=== PATIENT | male | born 1945 | race Caucasian/White ===

== ENCOUNTER 2022-10-04 09:19 | Day surgery (SDC) | payer MEDICARE, SELFPAY ==
[2022-10-04 09:55] VITALS: BP 179/79; PULSE 68; RESP 16; TEMP 36.5; O2SAT 99
[2022-10-04] MEDS: Tropicam./Phenyleph. (1/2.5%) 5 ML BTL OD ×3 (10:06→10:18)
--- NOTE | 2022-10-04 10:51 | ANES.PREOP_ITS ---
General Info Date of Service Date Performed: 10/04/22 Height: 5 ft 10 in Weight: 65.2 kg Body Mass Index (BMI): 20.6 Surgical Procedure: Operation Date: 10/04/22 11:25 Proposed Procedure Side Surgeon p Cataract Extraction with IOL Implant Right Fracisco Nino MD Meds Allergies and Home Medications Allergies Allergy/AdvReac Type Severity Reaction Status Date / Time No Known Allergies Allergy Unverified 10/04/22 10:08 Home Medication Medication Instructions Recorded ibuprofen 200 mg capsule 200 mg PO Q6H PRN 10/03/22 insulin glargine 100 unit/mL (3 25 unit subcut QPM 10/03/22 mL) subcutaneous pen (Lantus Solostar U-100 Insulin) insulin lispro 100 unit/mL 10 - 20 unit subcut TID 10/03/22 subcutaneous pen (Humalog KwikPen (U-100) Insulin) lovastatin 40 mg tablet 40 mg PO QPM 10/03/22 zinc 50 mg tablet 50 mg PO DAILY 10/03/22 Current Visit Medications: Current Medications Generic Name Dose Route Start Last Admin Trade Name Freq PRN Reason Stop Dose Admin Acetaminophen 1,000 mg 10/04/22 06:00 Acetaminophen 500 Mg Tab PO 11/03/22 05:59 Q4H PRN PRN Balanced Salt Solution 500 ml 10/04/22 06:00 Balanced Salt Soln.-Plus 500 Ml Bag OP 11/03/22 05:59 DIRECTED FOR[facility]LY [facility] Miscellaneous Medication 0 ml 10/04/22 06:00 Prednisolone 1%, Moxifloxacin 0.5%, Nepafenac 0.1% 5ml Btl OD 11/03/22 05:59 DIRECTED [facility] Miscellaneous Medication 0 ml 10/04/22 06:00 10/04/22 10:18 Tropicam./Phenyleph. (1/2.5%) 5 Ml Btl OD 11/03/22 05:59 1 drp DIRECTED GELA Administration Tetracaine HCl 0 ml 10/04/22 06:00 Tetracaine 0.5% 4 Ml Btl OD 11/03/22 05:59 DIRECTED GELA PFSH Active Problems Active Problems: Problem Status Onset Code Nuclear age-related cataract, right eye H25.11 Medical History Medical History Cataract Chronic low back pain Decreased hearing Diabetes mellitus Hyperlipidemia Low vitamin D level Radiculopathy with lower extremity symptoms Tobacco abuse disorder Surgical History Surgical History H/O removal of cyst right buttocks History of arthroscopic knee surgery History of hernia repair Tobacco Smoking/Tobacco Use Status: Current-Occasional Tobacco Type: cigarettes Alcohol Alcohol Intake: never Substance Use Substance use: Never Substance use type: does not use Vital Signs and Lab Results Vital Signs Most Recent Vital Signs in EMR: Most Recent Vital Signs Temp Pulse Resp BP Pulse Ox 36.5 C 68 16 179/79 H 99 10/04/22 09:55 10/04/22 09:55 10/04/22 09:55 10/04/22 09:55 10/04/22 09:55 Point of Care Results Point of Care Results: Finger Stick Blood Glucose 180 10/04/22 10:05 Lab Results Blood Type / Crossmatch: No Data to Display Complete Blood Count: No Data to Display Complete Metabolic Panel: No Data to Display Liver Function Panel: No Data to Display Coagulation Panel: No Data to Display Cardiac Panel: No Data to Display Arterial Blood Gas: No Data to Display Venous Blood Gas: No Data to Display Pancreas Panel: No Data to Display Thyroid Panel: No Data to Display Infectious Disease: No Data to Display Blood Cultures: No Data to Display Toxicology Panel: No Data to Display Anesthesia Assessment and Plan Anesthesia History Personal History: No History of Anesthesia Complications Family History: No Family History of Anesthesia Complications Exercise Tolerance Exercise Tolerance: Metabolic Equivalents>4 Cardiac & Pulmonary Exam Cardiac Exam: Normal S1/S2 Heart Sounds Pulmonary Exam: Clear Bilateral Breath Sounds Implantable Cardiac Device Does patient have a Pacemaker or an ICD?: No Airway Exam Known Difficult Airway: No Mallampati Class: 1 Mouth Opening: Normal (> 3cm) Thyromental Distance: Greater than 3 cm Neck Range of Motion: Full ROM Neck Circumference: Normal Teeth Condition: Removable Dentures/Plates Upper ASA Classification ASA Score: ASA 3 Emergency Case?: No NPO Status NPO Status: NPO Clears >2 hours, Solids >8 hours Anesthesia Plan Resuscitation Status: Full Code Anesthesia Technique: MAC Anesthesia Airway Planned: Natural Airway Monitors Used: Standard Monitors
[2022-10-04 11:22] VITALS: BMI 20.6
[2022-10-04] MEDS: Balanced Salt Soln.-PLUS 500 ML BAG OP (11:32)
[2022-10-04] MEDS: Lidocaine 1% Pres-Free 5 ML VIAL (11:33)
[2022-10-04] MEDS: Phenylephrine/Lidocaine (15/10) MG/ML 1 ML VIAL (11:34)
[2022-10-04] MEDS: Povidone-Iodine Ophth 30 ML BTL (11:36)
[2022-10-04] MEDS: Duovisc Viscoelastic System EACH 1 EACH (11:36)
[2022-10-04] MEDS: Tetracaine 0.5% 4 ML BTL OD (11:37)
--- NOTE | 2022-10-04 11:54 | W.PM.DSUDISC ---
Date of service: 10/04/22 Time of Service: 11:54 Discharge Plan Disposition Patient Disposition: Home Discharge Details Attending Provider: Fracisco Nino Primary Care Provider: Yu Portillo Home Meds and New Rx's Prescriptions: No Action ibuprofen 200 mg Capsule 200 mg PO Q6H PRN lovastatin 40 mg Tablet 40 mg PO QPM zinc 50 mg Tablet 50 mg PO DAILY insulin lispro [Humalog KwikPen Insulin] 100 unit/mL Insulin Pen 10 - 20 unit SUBCUT TID insulin glargine [Lantus Solostar U-100 Insulin] 100 unit/mL (3 mL) Insulin Pen 25 unit SUBCUT QPM Discharge Instructions Stand Alone Forms: Post-op Topical Cataract, Tiara Razo (DSU) Discharge Orders Discharge Orders: Discharge Order (Routine); Ordered 10/04/22 Ordered By: Fracisco Nino DS: Diagnosis Discharge Diagnosis (1) Nuclear age-related cataract, right eye: Status: Resolved
--- NOTE | 2022-10-04 11:55 | ROE_ITS ---
Date of service: 10/04/22 Time of Service: 12:01 Operative Note Operative Note DATE OF PROCEDURE: 10/04/22 PRE-OP DIAGNOSIS: Nuclear cataract, right eye POST-OP DIAGNOSIS: same PROCEDURE: Cataract extraction using phacoemulsification with intraocular lens implant, right eye SURGEON: Fracisco Nino ANESTHESIA TYPE: Local By Surgeon and MAC Refer to Anesthesia Record ESTIMATED BLOOD LOSS: 0 PATHOLOGY: none sent COMPLICATIONS: None Patient was transported to: same day Patient's condition: stable Implants: [employer]her [employer] Eyhance DIB00 Indications: Progressive visual loss due to cataract, right eye Procedure Description: CATARACT SURGERY OPERATIVE REPORT PREOPERATIVE DIAGNOSIS: 1. Nuclear cataract, right eye POSTOPERATIVE DIAGNOSIS: Same OPERATION: 1. Cataract extraction using phacoemulsification with posterior chamber intraocular lens implant, right eye. IOL: IOL Dyeing Machine Feeder/Model: [employer]her [employer]her [employer]nis Eyhance DIB00 IOL Power: + 20.5 diopters IOL Serial Number: [id number] Optic Diameter: 6.0mm Haptic/Overall Diameter: 13.0mm PHACO INFO: KrystianWalk-inon Vision System with [employer]Zil and [employer] Cumulative Dispersed Energy (CDE): 16.32 seconds SURGEON: Fracisco Nino MD, ALFREDO ANESTHESIA: Monitored Anesthesia Care (MAC), with local sub-tenon's anesthetic infiltration COMPLICATIONS: None SPECIMENS: None INDICATIONS FOR PROCEDURE: The patient is a 77-year-old gentleman with history of diminished visual acuity in his right eye secondary to the development of nuclear cataract. He is significantly symptomatic that he desires cataract surgery and attempt to improve and maximize his vision. The option of cataract surgery was offered to the patient and he wished to proceed. See office notes for detailed information. PROCEDURE: The correct surgical eye was identified and marked as the right eye and the pupil was dilated in the preoperative area using mydriatics and cycloplegics. The dilated pupil size was 7.0 mm. Oral sedation was administered in the form of an Imprimis MKO Melt (midazolam 3mg/ketamine 25mg/ondansetron 2mg). The patient elected to proceed without oral sedation. The patient was brought to the operating room where cardiopulmonary monitoring was instituted and surgical time-out was performed, confirming the correct operative eye and IOL power. Topical anesthesia was administered and ophthalmic povidone-iodine 5% was instilled into the conjunctival fornices. The suha-ocular area was prepped with Betadine 10% solution and draped in the usual sterile fashion for intraocular surgery, including an aperture drape. A Tegaderm transparent film dressing was cut in half and used to cover the lashes and lid margins. Care was taken to sequester the lashes and lid margins under the Tegaderm dressing. A lid speculum was placed between the lids of the operative eye and the Krystian [employer] Revalia operating microscope was maneuvered into position. Chelsea scissors were then used to make a conjunctival buttonhole approximately 6mm posterior to the limbus in the inferonasal quadrant. Blunt dissection was carried out to expose bare sclera, and a blunt-tipped sub-tenon?s anesthesia cannula was introduced and passed posteriorly along the globe where non- preserved plain lidocaine was injected into posterior sub-Tenon?s space. A sideport knife was used to make a paracentesis port. Intraocular phenylephrine/lidocaine was injected into the anterior chamber. The anterior chamber was filled with viscoelastic. A keratome knife was used to construct a 2-plane clear corneal tunnel extending 2.0mm into clear cornea. A flap was raised on the anterior capsule and capsulorhexis forceps were used to complete a continuous curvilinear capsulorhexis of 5.0 mm. Balanced salt solution was then used to perform cortical cleaving hydrodissection and nuclear hydrodelineation until the lens could be freely rotated within the capsular bag. The lens nucleus was then disassembled and removed within the capsular bag and iris plane using phacoemulsification. Residual cortical material was removed using the I/A handpiece. The posterior capsule was carefully polished to remove as much residual lens epithelial cells as safely possible. The capsular bag was then inflated and the anterior chamber deepened with cohesive viscoelastic. The lens implant described above was inserted into the capsular bag using the [employer] pre-load ed injector. A Kuglen hook was used to dial the IOL into position. Residual viscoelastic was then removed first from posterior to the IOL, then from the anterior chamber using the I/A handpiece. The lens implant was noted to center nicely within the capsular bag. The incisions were stromally hydrated, and the anterior chamber was reformed using BSS. Then 0.5cc of moxifloxacin 1.0mg/ml were injected into the capsular bag and anterior chamber. The incisions were checked with a Weck spear and found to be secure. Several drops of ophthalmic povidone-iodine 5% were then applied to the eye followed by two drops of Imprimis combination prednisolone/moxifloxacin/nepafenac solution. The drapes were removed and a clear plastic protective eye shield was placed over the eye. The patient was then returned to [facility] Day Surgery in stable condition.
[2022-10-04 12:15] VITALS: BP 194/80; PULSE 63; RESP 18; TEMP 36.5; O2SAT 98
--- NOTE | 2022-10-04 12:19 | W.ANESPOSTOP ---
Postoperative Evaluation Date, Time and Location Date Performed: 10/04/22 Time Performed: 12:19 Patient Location: Day Surgery Unit Vital Signs Most Recent Imported Vital Signs: Most Recent Vital Signs Temp Pulse Resp BP Pulse Ox 36.5 C 63 18 194/80 H 98 10/04/22 12:15 10/04/22 12:15 10/04/22 12:15 10/04/22 12:15 10/04/22 12:15 Pain Score Most Recent Pain Score: Most Recent Pain Score Pain Level 0 10/04/22 12:15 Assessment Mental Status: Awake (Alert & Oriented to Patient Baseline) Airway and Respiratory Function: Patent airway with normal (patient baseline) respiratory exam Cardiovascular Function: Hemodynamically Stable Hydration Status: Adequately Hydrated Nausea & Vomiting: No Nausea or Vomiting Pain: Pt. Denies Any Pain Peripheral Nerve Block: Patient did not receive a nerve block
== END 2022-10-04 12:10 | disposition home or self-care (01) ==
PROVIDERS: PCP Physician Assistant Medical; Visit Provider Ophthalmology
PROC: (CPT 66984; principal; 2022-10-04 11:15)
DX: H25.11 Age-related nuclear cataract, right eye (principal); E11.9 Type 2 diabetes mellitus without complications
CPT/HCPCS: 66984; V2632